=== PATIENT | male | born 1960 ===

== ENCOUNTER 2017-09-05 05:20 | Day surgery (SDC) | payer OTHER ==
[~2017-09-05 05:20] MED LIST: FORTAMET1000 MG PO; LIPITOR20 MG PO; VASOTEC5 MG PO
[2017-09-05] MEDS ORDERED: COLACE100 MG PO (08:08)
[2017-09-05] MEDS ORDERED: PERCOCET 5-3251 EACH PO (08:08)
== END 2017-09-05 12:30 | disposition home or self-care (01) ==
LOC: CIR.AMB 05:20
DX: K60.3 Anal fistula (principal)

== ENCOUNTER 2017-11-28 08:32 | Day surgery (SDC) | payer OTHER ==
[~2017-11-28 08:32] MED LIST changes: +COLACE100 MG PO; +PERCOCET 5-3251 EACH PO
[2017-11-28] MEDS ORDERED: PERCOCET 5-3251 EACH PO (09:05)
[2017-11-28] MEDS ORDERED: COLACE100 MG PO (09:05)
== END 2017-11-28 15:00 | disposition home or self-care (01) ==
LOC: CIR.AMB 08:32
DX: K60.3 Anal fistula (principal)